=== PATIENT | female | born 1975 | race Caucasian/White ===

== ENCOUNTER 2021-01-14 09:41 | Emergency (ER) | payer MEDICAID ==
[~2021-01-14] VITALS: Ht 162.6 cm; Wt 82.0 kg
[2021-01-14 09:51] VITALS: BP 130/79
== END 2021-01-14 11:09 | disposition home or self-care (01) ==
LOC: ER 09:43
DX: R07.89 Other chest pain (principal); M79.18 Myalgia, other site; G43.909 Migraine, unspecified, not intractable, without status migrainosus; E78.00 Pure hypercholesterolemia, unspecified; Z88.8 Allergy status to other drugs, medicaments and biological substances
CPT/HCPCS: 71045; 93005; 99283

== ENCOUNTER 2021-07-25 09:07 | Outpatient (CLI) | payer MEDICAID | END 2021-07-25 23:59 | disposition home or self-care (01) | LOC: RAD 09:07 | DX: R41.840 Attention and concentration deficit (principal) | CPT/HCPCS: 95819 ==